=== PATIENT | female | born 1990 | race Caucasian/White ===

== ENCOUNTER 2024-03-14 23:27 | Emergency (ER) | payer MEDICAID ==
[~2024-03-14] VITALS: Ht 162.6 cm; Wt 74.8 kg
[2024-03-15 01:30] VITALS: BP 115/72; TEMP 99.1
[2024-03-15] MEDS ORDERED: DOXY-326 PO (01:35)
[2024-03-15] MEDS ORDERED: DOXYCYCLINE HYCLATE (100 MG) 100 MG TABLET ONE (01:40)
[2024-03-15] MEDS: DOXYCYCLINE HYCLATE (100 MG) 100 MG TABLET PO ONE (01:41)
[2024-03-15 01:53] VITALS: O2SAT 100
== END 2024-03-15 01:53 | disposition home or self-care (01) ==
LOC: ER 23:30
DX: L02.415 Cutaneous abscess of right lower limb (principal); Z88.2 Allergy status to sulfonamides; Z60.2 Problems related to living alone